=== PATIENT | female | born 1960 | race Caucasian/White ===

== ENCOUNTER → 2018-01-16 | Day surgery (SDC) | payer BC ==
--- NOTE | 2018-01-13 15:25 | Diagnostic Imaging Report ---
PROCEDURE: Frontal and lateral views of the chest. COMPARISON: None. INDICATIONS: PREOPERATIVE CHEST XRAY FOR FOOT SURGERY FINDINGS: Lines/tubes: None. Lungs: The lungs are well inflated and clear. There is no evidence of pneumonia or pulmonary edema. Pleura: There is no pleural effusion or pneumothorax. Heart and mediastinum: The heart and the mediastinum are normal. Bones: No acute bony abnormality. Hair jesus overlying the bilateral hemithorax. IMPRESSION: No acute cardiopulmonary disease. Dictated by: Jeremy Azul M.D. on 01/13/2018 at 15:25 Electronically approved by: Jeremy Azul M.D. on 01/13/2018 at 15:25
[~2018-01-16] MED LIST: BUPIVACAINE HCL 0.5% 10ML MPF VIAL INJ ONE; CEFAZOLIN SOD 2 GM/D5W 50ML 50 ML IV ONE; CITALOPRAM HBR20 MG PO; DEXAMETHASONE SOD PHOS INJ 4 MG/ML VIAL ONE; EPHEDRINE SULFATE INJ 50 MG/10 ML SYR ONE; FENTANYL CITRATE/PF 100MCG/2 ML INJ ONE; LEVOTHYROXINE100 MC1 PO; LIDOCAINE HCL 2% LOCAL INJ 5 ML SDV VIAL INJ ONE; LISINOPRIL10 MG PO; MIDAZOLAM HCL 2 MG/2 ML VIAL ONE; ONDANSETRON HCL INJ 2 MG/ML VIAL ONE; PROPOFOL IV EMULSION 10 MG/ML 20 ML VIAL ONE; SEVOFLURANE INHAL SOLN 250 ML PEN BTL ONE; SULFAMETHOXAZO1 EAC1 PO; TYLENOL # 31 EA PO
--- OUTSIDE RECORDS SUMMARY | 2018-01-16 06:05 | XMS REPORT ---
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 Allergies, Adverse Reactions, Alerts This patient has no known allergies or adverse reactions. Medications This patient has no known medications. Results Test Description Test Time Test Comments Text Results Atomic Results Result Comments CHEST 2 VIEWS [place] [id number] Patient Name: BRANDON LARSON MR #: [id number] : 1960 Age/Sex: 57/F Req # : [id number] Adm Physician: Ordered by: LOCO DYKES DPM Report #: [id number] Location: OR Room/Bed: Procedure: [id number] DX/CHEST 2 VIEWS Exam Date: 01/13/18 Exam Time: 1430 REPORT STATUS: Signed PROCEDURE: Frontal and lateral views of the chest. COMPARISON: None. INDICATIONS: PREOPERATIVE CHEST XRAY FOR FOOT SURGERY FINDINGS: Lines/tubes: None. Lungs: The lungs are well inflated and clear. There is no evidence of pneumonia or pulmonary edema. Pleura: There is no pleural effusion or pneumothorax. Heart and mediastinum: The heart and the mediastinum are normal. Bones: No acute bony abnormality. Hair jesus overlying the bilateral hemithorax. IMPRESSION: No acute cardiopulmonary disease. Dictated by: Rao Azul M.D. on 01/13/2018 at 15:25 Electronically approved by: Rao Azul M.D. on 01/13/2018 at 15:25 Dictated By: RAO AZUL MD [id number] Transcribed By: DAJA on 01/13/18 1525 COPY TO: LOCO DYKES DPM
--- NOTE | 2018-01-26 18:53 | Operative Report ---
DATE OF PROCEDURE: January 16, 2018 PREOPERATIVE DIAGNOSES 1. Cystic lesion, dorsal aspect of the right foot. 2. Tailor's bunion, right foot. POSTOPERATIVE DIAGNOSES 1. Cystic lesion, dorsal aspect of the right foot. 2. Tailor's bunion, right foot. TITLE OF OPERATION 1. Excision of ganglion cyst, right foot. 2. Tailor's bunionectomy, right foot. ANESTHESIA: General endotracheal. HEMOSTASIS: Right thigh tourniquet at 350 mmHg. PROCEDURE IN DETAIL: The patient was taken to the operating room in a mildly sedated state and placed upon the operating table in the supine position. Following induction of general anesthetic, the right lower extremity is elevated to 60 degrees to exsanguinate before inflating pneumatic thigh tourniquet to 350 mmHg for hemostasis. The right Lower extremity was then placed on the operating table prior to performing the following procedure: Procedure #1: Cystic lesion excision. Linear longitudinal incision was made overlying the dorsal cystic lesion. Incision was deepened via sharp and blunt dissection down to the level of dorsal capsular structures. The lesion was approximately 5 gm in circumference, excised in toto after circumferential dissection with an electrocautery to all superficial bleeders and the deep stalk. The area was irrigated and closed with 3-0 Vicryl and 4-0 nylon. Attention was then directed to the Tailor's bunion site and linear longitudinal incision was made. The bone itself was remodeled after capsular incision and irrigated with copious amounts of sterile saline solution. Deep closure with 3-0 Vicryl. Skin closure 4-0 nylon. The areas of surgery were all blocked with 0.5 Marcaine and Decadron LA. A TLS drain was used. Release of the pneumatic thigh tourniquet showed a normal hyperemic flush to all digits of the right foot. The patient left the operating room with vital signs stable and in apparent satisfactory condition, having tolerated both anesthetic and procedure very well. Job#: [id number] GH
== END | disposition home or self-care (01) ==
LOC: OR 06:02
PROVIDERS: ATTEND Podiatrist Foot Surgery
DX: M67.471 Ganglion, right ankle and foot (principal); M21.6X1 Other acquired deformities of right foot; I10 Essential (primary) hypertension; E03.9 Hypothyroidism, unspecified; F39 Unspecified mood [affective] disorder; F17.210 Nicotine dependence, cigarettes, uncomplicated; Z01.810 Encounter for preprocedural cardiovascular examination; Z01.818 Encounter for other preprocedural examination
CPT/HCPCS: 28090; 28110; 71046; 76001; 88304; 88305; 93005; J1100; J2001; J2250; J2405; 88302; 88311

== ENCOUNTER 2018-10-20 03:36 | Inpatient (IN) | payer BC ==
[~2018-10-20] VITALS: Ht 162.6 cm; Wt 74.4 kg
[~2018-10-20 03:36] MED LIST changes: -BUPIVACAINE HCL 0.5% 10ML MPF VIAL INJ ONE; -CEFAZOLIN SOD 2 GM/D5W 50ML 50 ML IV ONE; -DEXAMETHASONE SOD PHOS INJ 4 MG/ML VIAL ONE; -EPHEDRINE SULFATE INJ 50 MG/10 ML SYR ONE; -FENTANYL CITRATE/PF 100MCG/2 ML INJ ONE; -LIDOCAINE HCL 2% LOCAL INJ 5 ML SDV VIAL INJ ONE; -MIDAZOLAM HCL 2 MG/2 ML VIAL ONE; -ONDANSETRON HCL INJ 2 MG/ML VIAL ONE; -PROPOFOL IV EMULSION 10 MG/ML 20 ML VIAL ONE; -SEVOFLURANE INHAL SOLN 250 ML PEN BTL ONE
[2018-10-20] MEDS ORDERED: ONDANSETRON HCL INJ 2 MG/ML VIAL IV STA (04:07)
[2018-10-20] MEDS ORDERED: SODIUM CHLORIDE 0.9% 1000ML 1,000 ML IV STA (04:07)
[2018-10-20] MEDS ORDERED: HYDROMORPHONE 1MG/1ML INJ IV STA (04:07)
[2018-10-20] MEDS ORDERED: VANCOMYCIN 1GM/NS 250 ML 250 ML IV SCH ×2 (04:15)
[2018-10-20] MEDS ORDERED: HYDROMORPHONE 2MG/ML 2 MG/ML ML ONE (04:29)
[2018-10-20 04:40] LABS: BASOPHILS # (AUTO) 0.1 (0.0-0.1); BASOPHILS % 0.6 % (0.0-1.0); EOSINOPHILS # (AUTO) 0.2 (0.0-0.4); EOSINOPHILS % 1.4 % (0.0-6.0); HEMATOCRIT 39.7 % (34.2-44.1); HEMOGLOBIN 13.3 g/dL (12.0-16.0); LYMPHOCYTES # (AUTO) 3.1 (1.0-3.2); LYMPHOCYTES % 27.4 % (18.0-39.1); MEAN CORPUSCULAR HEMOGLOBIN 34.1 pg (28-32); MEAN CORPUSCULAR HGB CONC 33.5 g/dL (31-35); MEAN CORPUSCULAR VOLUME 101.8 fL (81-99); MONOCYTES % 9.1 % (4.4-11.3); NEUTROPHILS # (AUTO) 6.8 (2.1-6.9); NEUTROPHILS % 61.1 % (38.7-80.0); PLATELET COUNT 324 x10e3/uL (140-360); RED CELL DISTRIBUTION WIDTH 14.9 % (11.7-14.4)
[2018-10-20 04:50] LABS: INR 0.82; PROTHROMBIN TIME 12.1 seconds (11.9-14.5)
[2018-10-20 04:51] LABS: PARTIAL THROMBOPLASTIN TIME 41.8 seconds (23.8-35.5)
--- NOTE | 2018-10-20 04:58 | Diagnostic Imaging Report ---
FOOT RIGHT COMPLETE Comparison: None Clinical history: Infection, right fifth MTP joint Findings: Marked soft tissue swelling with several foci of gas overlying the right fifth MTP joint. No underlying bony destruction. Mild first MTP degenerative seen. Impression: Marked soft tissue swelling with several foci of gas overlying the right fifth MTP joint suggestive of underlying gangrenous infection. No radiographic evidence of osteomyelitis. If there is ongoing clinical concern, consider short term follow up repeat radiographs or MRI. Signed by: Dr Vidya Mcguire MD on 10/20/2018 4:54 AM
[2018-10-20 05:00] LABS: ALANINE AMINOTRANSFERASE 18 IU/L (0-55); ALBUMIN 3.8 g/dL (3.5-5.0); ALBUMIN/GLOBULIN RATIO 0.9 (0.8-2.0); ALKALINE PHOSPHATASE 78 IU/L (40-150); ANION GAP 14.2 mmol/L (8-16); BLOOD UREA NITROGEN 8 mg/dL (7-26); BUN/CREATININE RATIO 12 (6-25); CALCIUM 9.3 mg/dL (8.4-10.2); CARBON DIOXIDE 22 mmol/L (22-29); CHLORIDE 104 mmol/L (98-107); CREATININE, SERUM 0.68 mg/dL (0.57-1.11); EST GLOMERULAR FILTRATION RATE > 60 ML/MIN (60-); GLUCOSE 110 mg/dL (74-118); POTASSIUM 4.2 mmol/L (3.5-5.1); SODIUM 136 mmol/L (136-145)
[2018-10-20] MEDS: SODIUM CHLORIDE 0.9% 1000ML 1,000 ML IV SCH ×3 (05:00→23:21)
[2018-10-20] MEDS: PIPER-TAZ 3.375 GM 50 ML IV SCH ×4 (05:00→23:44)
[2018-10-20] MEDS ORDERED: HYDROMORPHONE 1MG/1ML INJ IV PRN (05:15)
[2018-10-20] MEDS ORDERED: ONDANSETRON HCL INJ 2 MG/ML VIAL IV PRN (05:15)
[2018-10-20] MEDS ORDERED: HYDROMORPHONE 2MG/ML 2 MG/ML ML IV ONE (05:30)
[2018-10-20] MEDS ORDERED: FAMOTIDINE 20 MG TAB PO SCH ×2 (07:30→16:30)
[2018-10-20] MEDS: FAMOTIDINE 20 MG TAB PO SCH ×2 (07:50→17:04)
[2018-10-20] MEDS: LEVOTHYROXINE SODIUM 100 MCG TAB PO SCH (08:02)
--- NOTE | 2018-10-20 08:45 | History and Physical ---
PRIMARY CARE PHYSICIAN: Dr. Joseph Antunez CHIEF COMPLAINT: Right foot infection. HISTORY OF PRESENT ILLNESS: This is a 57-year-old woman with a history of right buttock abscess, who has had an infection in the right foot in the past, now developing swelling, pain and redness in the right foot that started about 2-3 days ago. The last time on antibiotics was in October of 2018. The patient was admitted for further evaluation and management. She continues to smoke cigarettes, a half a pack of cigarettes per day. PAST MEDICAL HISTORY: Cigarette use, right buttock abscess, status post incision and drainage, hypertension, hypothyroidism, chronic hepatitis C, hidradenitis, anxiety disorder. PAST SURGICAL HISTORY: Foot surgery, incision and drainage of right buttock abscess. ALLERGIES: PER ELECTRONIC MEDICAL RECORD. FAMILY/SOCIAL HISTORY: Patient is . She has no children. No alcohol. She smokes half a pack of cigarettes per day. MEDICATIONS: Per electronic medical record. REVIEW OF SYSTEMS: Denies any fever, chills, sweats, nausea, vomiting, diarrhea, headache, vision changes, back pain, chest pain, or shortness of breath. PHYSICAL EXAMINATION VITAL SIGNS: Reviewed. GENERAL: A tired-appearing woman resting in bed. HEENT: Anicteric. CARDIOVASCULAR: Normal S1 and S2. LUNGS: Moderate breath sounds. ABDOMEN: Soft, nontender and nondistended. EXTREMITIES: She has right foot lateral border with pus draining out after drainage in the emergency room. She has a dressing in place. The site is erythematous, tender, edematous, and warm. SKIN: Dry. PSYCHIATRIC: Flat affect. NEUROLOGICAL: Alert and oriented times 3. Moving all extremities. LABS: Reviewed. MEDICATIONS: Reviewed. ASSESSMENT: This is a 57-year-old woman with: 1. Right foot abscess. 2. Cigarette use. 3. Anxiety disorder. 4. Hypertension. 5. Hypothyroidism. PLAN 1. Continue broad-spectrum antibiotics. 2. Podiatry consulted. 3. Follow up cultures. 4. Continue home medications. 5. Obtain sed rate. 6. Hemoglobin A1c is 4.6. 7. Counseled on cigarette cessation. Will start nicotine patch. 8. Will use Lovenox and Pepcid for prophylaxis. Job#: [id number] MS
[2018-10-20] MEDS: HYDROMORPHONE 2MG/ML 2 MG/ML ML IV PRN ×5 (09:21→23:50)
[2018-10-20] MEDS: NICOTINE 14 MG/EA PATCH TOP SCH (09:21)
[2018-10-20] MEDS: CITALOPRAM HYDROBROMIDE 20 MG TAB PO SCH (09:21)
[2018-10-20] MEDS: LISINOPRIL 10 MG TAB PO SCH (09:21)
[2018-10-20 10:22] VITALS: BP 123/94
[2018-10-20 10:55] VITALS: BP 123/94
[2018-10-20 12:04] VITALS: BP 125/87
[2018-10-20] MEDS ORDERED: PNEUMOCOCCAL VACCINE POLYVALENT 23 MCG/0.5 ML VIAL IM SCH (14:00)
[2018-10-20] MEDS ORDERED: INFLUENZA VIRUS VAC SPLIT INJ 0.5 ML SYR IM ONE (14:00)
--- NOTE | 2018-10-20 15:07 | Diagnostic Imaging Report ---
MRI of the right forefoot without contrast. History: Swelling and pain. Pain at the right fifth toe. Osteomyelitis. Prior incision and drainage. Technique: Multiplanar multisequence MRI of the foot without contrast. Comparison: Radiographs 10/20/2018 Findings: There is abnormal soft tissue edema and skin thickening with foci of air along the distal lateral foot at the level of the distal fifth metatarsal. There is no underlying cortical destruction or focal bone marrow edema to suggest osteomyelitis at this time. No acute fracture, dislocation or evidence of avascular process. There are scattered degenerative changes most pronounced at the first metatarsophalangeal joint. No ligamentous or tendon tear is seen. The visualized muscles are normal in size, signal intensity and morphology. The visualized neurovascular bundles are intact. Impression: Abnormal soft tissue edema and skin thickening with foci of air along the distal lateral foot at the level of the distal fifth metatarsal. This is consistent with cellulitis and abscess formation. There is no underlying cortical destruction or focal bone marrow edema to suggest osteomyelitis at this time. Signed by: Dr. Kristian Freeman M.D. on 10/20/2018 3:03 PM
--- NOTE | 2018-10-20 15:10 | Consultation ---
DATE OF CONSULTATION: October 20, 2018 CHIEF COMPLAINT AND HISTORY OF CHIEF COMPLAINT: Mrs. Simeon Rivers is a most pleasant, 57-year-old female with history of multiple infections, particularly the buttocks had an abscess of the right buttocks many years ago which was drained. She stated that she had also had an infection in her right foot and was on antibiotics back in October of last year. The patient is a smoker, smoking half a pack of cigarettes per day. The patient has responded to antibiotics in the past, and was told that she had MRSA in her buttocks abscess. She states that 2-3 days ago she noticed an increase in swelling in the right foot to a point of extreme pain. She came in last night through the emergency room. ER doctor drained the abscess and admitted her on IV antibiotics. PAST MEDICAL HISTORY: Includes cigarette use, abscessing hypertension, hypothyroidism, chronic hepatitis C and an anxiety disorder. PAST SURGICAL HISTORY: Includes right foot surgery and an incision and drainage of the right buttocks abscess. ALLERGIES: NO KNOWN DRUG ALLERGIES. FAMILY AND SOCIAL HISTORY: She is with no children. She does not drink alcohol. CURRENT MEDICATIONS: Well documented elsewhere within the chart. Please see electronic medical record. REVIEW OF SYSTEMS: Patient does complaint pain in the right lower extremity. She denies fever, chills, sweating, nausea or vomiting. She did state that she felt weak and sick to her stomach when she was admitted to the ER last night, but currently does not feel that way. She denies history of chest pain or shortness of breath. PHYSICAL EXAMINATION: LOWER EXTREMITIES: Vascular status: The patient has mildly palpable dorsalis pedis and nonpalpable posterior tibial pulses, both left and right feet, possibly deep to edema. Neurologic: She has no loss of protective sensation as evidenced by [place] monofilament testing. Dermatologically: There is an abscessed area on the right foot overlying the 5th metatarsophalangeal joint. There is a puncture wound on the dorsal lateral aspect through which significant amount hematogenous, sanguinous purulent exudate is currently draining. This area was expressed and an additional 10 mL, more or less, purulent red exudate was drained from the wound. Dressing was reapplied. She will need wet-to-dry dressings on that site. No other significant lesions were present. There is some mild scarring on the plantar aspect of that right foot, possibly from previous foreign body. The site is erythematous and warm to touch. Musculoskeletal: Shows the patient with rectus foot type with no other significant deformity. Radiographs which were reviewed do show an abscess with some air at the time of admission. This abscess is currently draining, but needs further revision in the OR. DIAGNOSES: Abscess cellulitis in the right foot in a patient with no diabetes but multiple medical issues. RECOMMENDATIONS: The wound is currently draining, has been cultured, and local wound care is being administered. She is currently on IV antibiotics. Dr. Fisher has been consulted for further evaluation and treatment and recommendation on antibiotics. Arterial Dopplers have been ordered to evaluate vascular status. Wound care is currently a saline wet-to-dry dressing to encourage continued drainage. MRI has been ordered to determine extent of bone involvement or possible osteomyelitis at this point. Incision and drainage of the right foot abscess has been scheduled in the OR for tomorrow noon. Diabetes workup is undergoing and hemoglobin A1c is 4.[address] Melton. The patient will currently remain minimally weightbearing and further course of treatment will be recommended after I&D tomorrow. Job#: [id number]
--- NOTE | 2018-10-20 16:42 | Consultation ---
DATE OF CONSULTATION: REASON FOR CONSULTATION: Infection in the foot, cellulitis, concern of osteomyelitis. HISTORY OF PRESENT ILLNESS: Qijgr[age]ujqkq-orys-old white female. History of several infections before, recurrent right buttock abscess, face abscess. She is coming with fever and chills for about 4 days ago. Does not have redness or swelling of her foot on the right. No specific trauma. She did not step on anything. The patient was just recently in the hospital with another abscess and she was started on an antibiotic and just finished it a few months ago according to her. The patient is coming back with the same fever, chills, and now infection in her foot. Patient is being admitted. Plan for her to go I and D tomorrow. Infectious disease is consulted for antibiotic. She is currently lying in bed comfortably. PAST MEDICAL HISTORY: Multiple abscesses, right buttock abscess, face abscess, status post I and D, chronic hepatitis C, anxiety disorder, hidradenitis, smoker. PAST SURGICAL HISTORY: Foot surgery. I and D of right buttock abscess. ALLERGIES: NKA. SOCIAL HISTORY: She smokes 1 pack a day. No drug abuse, alcohol abuse. FAMILY HISTORY: Diabetes mellitus and hypertension. REVIEW OF SYSTEMS HEENT: Negative. PULMONARY: Negative. CARDIAC: Negative. : Negative. SKIN: There is no rash. LABORATORY DATA: Wound cultures still pending. Her white count 11.2, hemoglobin of 13. Her sed rate of 30. Her sodium 136, potassium 4.2. Her liver enzyme within normal limits. Creatinine 0.68. She had an MRI of her foot which showed soft tissue swelling with air along the distal aspect of the foot to the level of the distal 5th metatarsal. No underlying bone infection. Patient was started on Zosyn and vancomycin. PHYSICAL EXAMINATION GENERAL: She is currently alert, oriented. Does not seem to be in acute distress. VITALS: Stable, currently afebrile. HEENT: She is not icteric. NECK: Supple. CHEST: Clear. HEART: S1, S2. No murmur. ABDOMEN: Soft. EXTREMITIES: The foot there is erythema. There is edema. IMPRESSION: Abscess of the foot in a patient who has history of smoking, history of multiple infections before, methicillin-resistant Staphylococcus aureus colonization. Agree with the choice of antibiotic. Surgical debridement in the morning. Will follow. Further recommendations to follow. Job#: [id number] TA
[2018-10-20 17:02] VITALS: BP 146/94
[2018-10-20] MEDS: ENOXAPARIN SOD INJ 40 MG/0.4 ML SYR SC SCH (17:04)
[2018-10-20] MEDS: VANCOMYCIN 1GM/NS 250 ML 250 ML IV SCH (18:15)
[2018-10-20 20:00] VITALS: BP 142/81
[2018-10-20 21:00] VITALS: BP 142/81
[2018-10-21] VITALS (9 sets, daily range): BP systolic 136–174; BP diastolic 73–95
[2018-10-21] MEDS: HYDROMORPHONE 2MG/ML 2 MG/ML ML IV PRN ×5 (04:25→22:00)
[2018-10-21] MEDS: SODIUM CHLORIDE 0.9% 1000ML 1,000 ML IV SCH (05:12)
[2018-10-21] MEDS: PIPER-TAZ 3.375 GM 50 ML IV SCH (05:24)
[2018-10-21] MEDS: VANCOMYCIN 1GM/NS 250 ML 250 ML IV SCH ×2 (06:45→18:39)
[2018-10-21] MEDS: FAMOTIDINE 20 MG TAB PO SCH ×2 (07:30→16:30)
[2018-10-21 08:20] LABS: CHOL/HDL RATIO 3.1 (3.0-3.6)
[2018-10-21] MEDS: CEFEPIME HCL 1 GM VIAL IV SCH (12:00)
[2018-10-21] MEDS ORDERED: BACITRACIN 50,000 UNIT VIAL ONE (12:43)
[2018-10-21] MEDS ORDERED: BUPIVACAINE HCL 0.5% INJ 30 ML VIAL INJ ONE (12:43)
[2018-10-21 13:45] LABS: BASOPHILS # (AUTO) 0.1 (0.0-0.1); BASOPHILS % 1.1 % (0.0-1.0); EOSINOPHILS # (AUTO) 0.2 (0.0-0.4); HEMATOCRIT 37.1 % (34.2-44.1); HEMOGLOBIN 12.2 g/dL (12.0-16.0); LYMPHOCYTES # (AUTO) 2.5 (1.0-3.2); LYMPHOCYTES % 38.1 % (18.0-39.1); MEAN CORPUSCULAR HEMOGLOBIN 34.6 pg (28-32); MEAN CORPUSCULAR HGB CONC 32.9 g/dL (31-35); MEAN CORPUSCULAR VOLUME 105.1 fL (81-99); MONOCYTES # (AUTO) 0.6 (0.2-0.8); MONOCYTES % 9.3 % (4.4-11.3); NEUTROPHILS # (AUTO) 3.2 (2.1-6.9); NEUTROPHILS % 48.2 % (38.7-80.0); PLATELET COUNT 288 x10e3/uL (140-360); RED BLOOD COUNT 3.53 x10e6/uL (3.6-5.1)
[2018-10-21] MEDS ORDERED: FENTANYL CITRATE/PF 100MCG/2 ML INJ ONE ×2 (13:48→19:21)
[2018-10-21 13:58] LABS: ALANINE AMINOTRANSFERASE 14 IU/L (0-55); ALBUMIN 3.1 g/dL (3.5-5.0); ALBUMIN/GLOBULIN RATIO 0.9 (0.8-2.0); ALKALINE PHOSPHATASE 62 IU/L (40-150); BLOOD UREA NITROGEN 6 mg/dL (7-26); BUN/CREATININE RATIO 10 (6-25); CALCIUM 8.8 mg/dL (8.4-10.2); CARBON DIOXIDE 23 mmol/L (22-29); CHLORIDE 105 mmol/L (98-107); EST GLOMERULAR FILTRATION RATE > 60 ML/MIN (60-); GLUCOSE 95 mg/dL (74-118); SODIUM 138 mmol/L (136-145)
[2018-10-21] MEDS: LISINOPRIL 10 MG TAB PO SCH (14:20)
[2018-10-21] MEDS: CITALOPRAM HYDROBROMIDE 20 MG TAB PO SCH (14:20)
[2018-10-21] MEDS ORDERED: ONDANSETRON HCL INJ 2 MG/ML VIAL ONE (14:35)
[2018-10-21] MEDS ORDERED: DEXAMETHASONE SOD PHOS INJ 4 MG/ML VIAL ONE (14:35)
[2018-10-21] MEDS ORDERED: PROPOFOL IV EMULSION 10 MG/ML 20 ML VIAL ONE (14:35)
[2018-10-21] MEDS ORDERED: LIDOCAINE HCL 2% LOCAL INJ 5 ML SDV VIAL INJ ONE (14:35)
[2018-10-21] MEDS ORDERED: SEVOFLURANE INHAL SOLN 250 ML PEN BTL ONE (14:35)
--- NOTE | 2018-10-21 14:54 | Operative Report ---
DATE OF PROCEDURE: PREOPERATIVE DIAGNOSIS: Abscess cellulitis of the right foot. POSTOPERATIVE DIAGNOSIS: Abscess cellulitis of the right foot. TITLE OF OPERATION: Incision and drainage with deep wound debridement of the right foot. PROCEDURE IN DETAIL: The patient was taken to the operating room in a mildly sedated state and placed upon the operating table in supine position. Following induction of general anesthesia the right foot was prepped and draped utilizing Betadine prep, the right foot was placed upon the operating table prior to performing the following procedure. The diagnosis was abscess cellulitis of the right foot, and an incision and drainage was performed. A plantar lateral incision was placed through the superficial and deep tissues of the right foot. These were then debrided circumferentially around the base of the abscess, which was actually quite large. It measured 3 cm x 3 cm x 2 cm deep. The wound itself had a granular muscular base with capsule of the 5th metatarsophalangeal joint exposed. The wound was again debrided full thickness through skin and subcutaneous tissue including infected and necrotic muscle on the plantar lateral aspect of the right foot. That wound base was then irrigated with copious amounts of bacitracin solution utilizing a Simpulse system. Prior to irrigation, deep wound cultures and sensitivities were obtained. The area was packed open with iodoform gauze, including the still yet mildly undermining areas particularly plantarly. The appropriate mildly compressive dressing was applied, and it was noted that adequate capillary refill was noted to the 5th digit of the right foot despite the depth of the plantar lateral debridement. The area showed significant but not profuse bleeding of the surrounding healthy tissues once the necrotic tissue was removed. With application of the appropriate mildly compressive dressings applied and intact, the patient was transported to the PACU and will be readmitted to the floor. IV antibiotics will be continued while bacteria is further identified for discharge to oral or IV antibiotics as recommended by Dr. iFsher. The deep wound will be managed with local wound care in house and ultimately likely transitioned to a Wound VAC. Job#: [id number] EV JUHI
[2018-10-21] MEDS: NICOTINE 14 MG/EA PATCH TOP SCH (15:00)
[2018-10-21] MEDS: ENOXAPARIN SOD INJ 40 MG/0.4 ML SYR SC SCH (17:05)
[2018-10-21] MEDS ORDERED: MIDAZOLAM HCL 2 MG/2 ML VIAL ONE (19:21)
[2018-10-22] VITALS (7 sets, daily range): BP systolic 140–157; BP diastolic 70–91
[2018-10-22] MEDS: SODIUM CHLORIDE 0.9% 1000ML 1,000 ML IV SCH ×2 (01:33→03:07)
[2018-10-22] MEDS: HYDROMORPHONE 2MG/ML 2 MG/ML ML IV PRN ×7 (01:35→23:07)
[2018-10-22] MEDS: LEVOTHYROXINE SODIUM 100 MCG TAB PO SCH (05:06)
[2018-10-22] MEDS: VANCOMYCIN 1GM/NS 250 ML 250 ML IV SCH ×2 (06:00→18:25)
[2018-10-22 07:30] LABS: BASOPHILS % 0.4 % (0.0-1.0); EOSINOPHILS # (AUTO) 0.1 (0.0-0.4); EOSINOPHILS % 0.6 % (0.0-6.0); HEMATOCRIT 34.2 % (34.2-44.1); HEMOGLOBIN 11.4 g/dL (12.0-16.0); LYMPHOCYTES # (AUTO) 2.5 (1.0-3.2); MEAN CORPUSCULAR HEMOGLOBIN 34.3 pg (28-32); MEAN CORPUSCULAR HGB CONC 33.3 g/dL (31-35); MONOCYTES # (AUTO) 1.1 (0.2-0.8); MONOCYTES % 11.5 % (4.4-11.3); NEUTROPHILS # (AUTO) 5.7 (2.1-6.9); NEUTROPHILS % 60.2 % (38.7-80.0); PLATELET COUNT 279 x10e3/uL (140-360); RED BLOOD COUNT 3.32 x10e6/uL (3.6-5.1); RED CELL DISTRIBUTION WIDTH 14.4 % (11.7-14.4)
[2018-10-22 07:42] LABS: ANION GAP 13.8 mmol/L (8-16); BLOOD UREA NITROGEN 10 mg/dL (7-26); BUN/CREATININE RATIO 19 (6-25); CALCIUM 9.1 mg/dL (8.4-10.2); CARBON DIOXIDE 24 mmol/L (22-29); CHLORIDE 102 mmol/L (98-107); CREATININE, SERUM 0.53 mg/dL (0.57-1.11); EST GLOMERULAR FILTRATION RATE > 60 ML/MIN (60-); GLUCOSE 113 mg/dL (74-118); POTASSIUM 3.8 mmol/L (3.5-5.1); SODIUM 136 mmol/L (136-145)
[2018-10-22] MEDS: FAMOTIDINE 20 MG TAB PO SCH ×2 (07:50→16:30)
[2018-10-22] MEDS: CITALOPRAM HYDROBROMIDE 20 MG TAB PO SCH (09:40)
[2018-10-22] MEDS: LISINOPRIL 10 MG TAB PO SCH (09:40)
[2018-10-22] MEDS: NICOTINE 14 MG/EA PATCH TOP SCH (09:41)
[2018-10-22] MEDS: CEFEPIME HCL 1 GM VIAL IV SCH ×3 (12:16→23:08)
[2018-10-22] MEDS: ENOXAPARIN SOD INJ 40 MG/0.4 ML SYR SC SCH (17:16)
--- NOTE | 2018-10-22 20:02 | Progress Note ---
DATE: SUBJECTIVE: The patient is seen today postoperatively with no new complaints. Her right foot is dressed sterilely with some minor serous drainage on the gauze. The wound dressing was completely removed. Packing was left intact. I would like to start sterile saline wet-to-dry and removal and replacement of the packing tomorrow. For today, I will just rewrap a saline wet-to-dry over the intact 1/4-inch iodoform packing. Patient understands she needs continued IV antibiotics due to the severity of the infection, the size of the wound, and we still yet do not have a culture ID of organism. She is likely to remain in through the weekend and will be sent home on the appropriate antibiotics early next week. Job#: [id number] CHRISTINA
[2018-10-23] VITALS (8 sets, daily range): BP systolic 139–180; BP diastolic 72–92
[2018-10-23] MEDS: HYDROMORPHONE 2MG/ML 2 MG/ML ML IV PRN ×6 (03:22→22:37)
[2018-10-23] MEDS: VANCOMYCIN 1GM/NS 250 ML 250 ML IV SCH ×2 (05:07→18:03)
[2018-10-23] MEDS: LEVOTHYROXINE SODIUM 100 MCG TAB PO SCH (05:07)
[2018-10-23] MEDS: FAMOTIDINE 20 MG TAB PO SCH ×2 (07:46→16:40)
[2018-10-23] MEDS: CITALOPRAM HYDROBROMIDE 20 MG TAB PO SCH (09:14)
[2018-10-23] MEDS: LISINOPRIL 20 MG TAB PO SCH (09:14)
[2018-10-23] MEDS: NICOTINE 14 MG/EA PATCH TOP SCH (09:14)
[2018-10-23] MEDS: CEFEPIME HCL 1 GM VIAL IV SCH (12:02)
[2018-10-23] MEDS: ENOXAPARIN SOD INJ 40 MG/0.4 ML SYR SC SCH (17:17)
--- NOTE | 2018-10-23 18:02 | Progress Note ---
DATE: ROOM #284 Patient is seen today postoperatively. Sterile, redress; all packing is removed. The wound base is clear and clean at this point. There still remains a significant amount of inflammation and erythema surrounding the wound. Full-thickness debridement has been completed. There is exposed joint capsule in order to stimulate granular tissue and increase the speed of granulation to cover the capsule and thus preventing spread of infection, I have recommended a wound VAC. She needs to stay on IV antibiotics through the weekend here in the hospital and consider discharge on Friday pending Dr. Fisher's recommendations for antibiotics. Job#: [id number] RTY
[2018-10-24] VITALS (8 sets, daily range): BP systolic 135–160; BP diastolic 64–88
[2018-10-24] MEDS ORDERED: SODIUM CHLORIDE 0.9% 50ML 50 ML ONE ×2 (00:26→11:16)
[2018-10-24] MEDS: CEFEPIME HCL 1 GM VIAL IV SCH ×3 (01:10→23:59)
[2018-10-24] MEDS: HYDROMORPHONE 2MG/ML 2 MG/ML ML IV PRN ×8 (01:38→23:45)
[2018-10-24] MEDS: VANCOMYCIN 1GM/NS 250 ML 250 ML IV SCH ×2 (05:30→17:38)
[2018-10-24] MEDS: LEVOTHYROXINE SODIUM 100 MCG TAB PO SCH (05:30)
[2018-10-24] MEDS: CITALOPRAM HYDROBROMIDE 20 MG TAB PO SCH (08:01)
[2018-10-24] MEDS: FAMOTIDINE 20 MG TAB PO SCH ×2 (08:01→16:35)
[2018-10-24] MEDS: LISINOPRIL 20 MG TAB PO SCH (08:02)
[2018-10-24] MEDS: NICOTINE 14 MG/EA PATCH TOP SCH (09:00)
[2018-10-24] MEDS: ENOXAPARIN SOD INJ 40 MG/0.4 ML SYR SC SCH (16:35)
[2018-10-25] VITALS (7 sets, daily range): BP systolic 122–149; BP diastolic 59–79
[2018-10-25] MEDS: HYDROMORPHONE 2MG/ML 2 MG/ML ML IV PRN ×7 (02:50→21:21)
[2018-10-25] MEDS: VANCOMYCIN 1GM/NS 250 ML 250 ML IV SCH ×2 (05:48→16:54)
[2018-10-25] MEDS: LEVOTHYROXINE SODIUM 100 MCG TAB PO SCH (05:48)
[2018-10-25] MEDS: FAMOTIDINE 20 MG TAB PO SCH ×2 (07:56→16:54)
[2018-10-25] MEDS: CITALOPRAM HYDROBROMIDE 20 MG TAB PO SCH (07:56)
[2018-10-25] MEDS: LISINOPRIL 20 MG TAB PO SCH (07:56)
[2018-10-25] MEDS: NICOTINE 14 MG/EA PATCH TOP SCH (07:56)
[2018-10-25] MEDS: CEFEPIME HCL 1 GM VIAL IV SCH (12:00)
[2018-10-25] MEDS ORDERED: SODIUM CHLORIDE 0.9% 50ML 50 ML ONE (12:00)
--- NOTE | 2018-10-25 13:50 | Progress Note ---
DATE: October 25, 2018 SUBJECTIVE: Patient was seen at bedside today, no acute distress. Dressing clean, dry, and intact to the right foot. VAC was in place. She denies any nausea, fever, chills, vomiting, or any constitutional symptoms. ASSESSMENT: Status post debridement with application of wound VAC to the right foot. PLAN: Continue with Dr. Peterson's wound care recommendations. IV antibiotics per infectious disease. Podiatry will continue to follow. Thank you again for including us in the care of this patient. Job#: [id number] CANDIDO
[2018-10-25] MEDS: ENOXAPARIN SOD INJ 40 MG/0.4 ML SYR SC SCH (16:54)
[2018-10-26] VITALS: BP 136/73
[2018-10-26] MEDS: HYDROMORPHONE 2MG/ML 2 MG/ML ML IV PRN ×6 (00:15→16:00)
[2018-10-26] MEDS: CEFEPIME HCL 1 GM VIAL IV SCH ×2 (00:22→12:24)
[2018-10-26 04:00] VITALS: BP 142/81
[2018-10-26] MEDS: LEVOTHYROXINE SODIUM 100 MCG TAB PO SCH (06:00)
[2018-10-26] MEDS: VANCOMYCIN 1GM/NS 250 ML 250 ML IV SCH (06:45)
[2018-10-26 07:05] VITALS: BP 133/70
[2018-10-26 07:39] VITALS: BP 133/70
[2018-10-26] MEDS ORDERED: MINOCYCLINE HCL50 MG PO (07:42)
[2018-10-26] MEDS ORDERED: NICODERM CQ1 EAC1 TOP (07:42)
[2018-10-26] MEDS ORDERED: CIPRO500 MG PO (07:42)
[2018-10-26] MEDS: FAMOTIDINE 20 MG TAB PO SCH (08:10)
[2018-10-26] MEDS: CITALOPRAM HYDROBROMIDE 20 MG TAB PO SCH (09:17)
[2018-10-26] MEDS: LISINOPRIL 20 MG TAB PO SCH (09:17)
[2018-10-26] MEDS: NICOTINE 14 MG/EA PATCH TOP SCH (09:17)
[2018-10-26 11:50] VITALS: BP 127/75
--- NOTE | 2018-10-26 14:27 | Progress Note ---
DATE: Patient is evaluated today. Wound VAC is operational. She has no new complaints. She continues to have pain in her right foot. Physical evaluation shows palpable pedal pulses. Neurologically, she has no loss of protective sensation. Dermatologically, the wound itself is covered with a wound VAC which is functional at this point. She is having difficulty stepping on it due to the lateral placement of the pump apparatus. We discussed possibly next time, they apply the wound VAC appliance to the top of her foot so it will seal better and allow her to walk. Patient understands this and she is actually ready for discharge. Dr. Fisher has authorized oral antibiotic regimen. We discussed with her switching to [place] 10 per 325 one p.o. q.4 h. p.r.n. pain as her discharge pain medicine. Patient understands this and with regard to her pump, we are still awaiting outpatient wound VAC approval. As soon as this is achieved, she may discharge home to home health on wound VAC and oral antibiotics, returning to see me in the office within 1 week post discharge. Job#: [id number] [place]
[2018-10-26 15:49] VITALS: BP 152/90
[2018-10-26] MEDS ORDERED: DOXYCYCLINE HY100 MG PO (16:17)
[2018-10-26] MEDS ORDERED: CEFEPIME 1GM/NS 0.9% 50 ML 50 ML IV SCH (21:00)
== END 2018-10-26 17:13 | disposition home or self-care (01) | DRG 581 ==
LOC: ER 03:36 → ERHOLD 06:32 → MED/SURG3 08:27
PROVIDERS: ADMIT Internal Medicine; ATTEND Internal Medicine
PROC: 0KBV0ZZ Excision of Right Foot Muscle, Open Approach (ICD-10-PCS; principal; 2018-10-21 12:45)
DX: L02.611 Cutaneous abscess of right foot (principal); F17.210 Nicotine dependence, cigarettes, uncomplicated; Z22.322 Carrier or suspected carrier of Methicillin resistant Staphylococcus aureus; E03.9 Hypothyroidism, unspecified; B18.2 Chronic viral hepatitis C; R53.81 Other malaise; I10 Essential (primary) hypertension
CPT/HCPCS: 36415; 80048; 80053; 80061; 80202; 83036; 85025; 85610; 85651; 85730; 87070; 87071; 87075; 87205; 90732; 93005; 93925; 96361; 99284; J0692; J1100; J1650; J2001; J2250; J2405; J2543; J3370; J7030

== ENCOUNTER 2021-02-13 14:53 | Emergency (ER) | payer BC ==
[~2021-02-13] VITALS: Ht 162.6 cm; Wt 74.4 kg
[~2021-02-13 14:53] MED LIST changes: +CIPRO500 MG PO; +DOXYCYCLINE HY100 MG PO; +MINOCYCLINE HCL50 MG PO; +NICODERM CQ1 EAC1 TOP
[2021-02-13] MEDS: MORPHINE SULFATE INJ 4 MG/ML INJ 1ML IV STA (15:30)
[2021-02-13] MEDS: KETOROLAC TROMETHAMINE 30 MG/ML VIAL IV STA (15:32)
[2021-02-13] MEDS: DEXAMETHASONE SOD PHOS 10 MG/1 ML VIAL IV ONE (15:32)
[2021-02-13 15:38] LABS: BASOPHILS # (AUTO) 0.1 (0.0-0.1); EOSINOPHILS # (AUTO) 0.3 (0.0-0.4); EOSINOPHILS % 3.6 % (0.0-6.0); HEMATOCRIT 40.2 % (34.2-44.1); HEMOGLOBIN 13.5 g/dL (12.0-16.0); LYMPHOCYTES # (AUTO) 2.8 (1.0-3.2); LYMPHOCYTES % 36.8 % (18.0-39.1); MEAN CORPUSCULAR HEMOGLOBIN 30.6 pg (28-32); MEAN CORPUSCULAR HGB CONC 33.6 g/dL (31-35); MEAN CORPUSCULAR VOLUME 91.2 fL (81-99); MONOCYTES # (AUTO) 0.5 (0.2-0.8); MONOCYTES % 6.9 % (4.4-11.3); NEUTROPHILS # (AUTO) 3.9 (2.1-6.9); NEUTROPHILS % 51.4 % (38.7-80.0); PLATELET COUNT 307 x10e3/uL (140-360); RED BLOOD COUNT 4.41 x10e6/uL (3.6-5.1); RED CELL DISTRIBUTION WIDTH 12.9 % (11.7-14.4)
[2021-02-13 15:57] LABS: ALANINE AMINOTRANSFERASE 44 IU/L (0-55); ALBUMIN 3.6 g/dL (3.5-5.0); ALBUMIN/GLOBULIN RATIO 0.8 (0.8-2.0); ALKALINE PHOSPHATASE 170 IU/L (40-150); ANION GAP 15.3 mmol/L (8-16); BLOOD UREA NITROGEN 8 mg/dL (7-26); BUN/CREATININE RATIO 12 (6-25); CALCIUM 8.5 mg/dL (8.4-10.2); CARBON DIOXIDE 22 mmol/L (22-29); CHLORIDE 100 mmol/L (98-107); CREATININE, SERUM 0.68 mg/dL (0.57-1.11); EST GLOMERULAR FILTRATION RATE > 60 ML/MIN (60-); GLUCOSE 95 mg/dL (74-118); POTASSIUM 4.3 mmol/L (3.5-5.1); SODIUM 133 mmol/L (136-145)
[2021-02-13] MEDS ORDERED: HYDROCODON-ACE1 EA12 PO (16:48)
== END 2021-02-13 18:16 | disposition home or self-care (01) ==
LOC: ER 14:57
DX: M25.572 Pain in left ankle and joints of left foot (principal); M25.571 Pain in right ankle and joints of right foot; M25.562 Pain in left knee; M25.561 Pain in right knee; M25.552 Pain in left hip; M25.551 Pain in right hip; M54.2 Cervicalgia; I10 Essential (primary) hypertension; E03.9 Hypothyroidism, unspecified; F41.9 Anxiety disorder, unspecified
CPT/HCPCS: 36415; 73110; 80053; 85025; 99284; J1100; J1885; J2270

== ENCOUNTER 2022-10-04 08:44 | Emergency (ER) | payer BC ==
[~2022-10-04] VITALS: Ht 160 cm; Wt 74.4 kg
[~2022-10-04 08:44] MED LIST changes: +HYDROCODON-ACE1 EA12 PO
[2022-10-04] MEDS ORDERED: KETOROLAC TROMETHAMINE 30 MG/ML VIAL IM STA (08:57)
[2022-10-04] MEDS ORDERED: DEXAMETHASONE SOD PHOS 10 MG/1 ML VIAL IM ONE (09:00)
[2022-10-04] MEDS ORDERED: MUCINEX DM ER1 EACH PO (10:00)
== END 2022-10-04 10:50 | disposition home or self-care (01) ==
LOC: ER 08:49
DX: R05.9 Cough, unspecified (principal); J06.9 Acute upper respiratory infection, unspecified; J02.9 Acute pharyngitis, unspecified; Z20.822 Contact with and (suspected) exposure to COVID-19
CPT/HCPCS: 71045; 99284; J1100; J1885; U0002

== ENCOUNTER 2024-06-27 06:57 | Emergency (ER) | payer BC, OTHER ==
[~2024-06-27] VITALS: Ht 160 cm; Wt 74.4 kg
[~2024-06-27 06:57] MED LIST changes: +MUCINEX DM ER1 EACH PO
[2024-06-27 07:07] VITALS: PULSE 72; RESP 16; TEMP 98.2
[2024-06-27] MEDS: KETOROLAC TROMETHAMINE 60 MG/2 ML VIAL IM ONE (07:30)
[2024-06-27] MEDS: HYDRALAZINE HCL 25 MG TAB PO ONE (07:31)
[2024-06-27] MEDS ORDERED: PREDNISONE20 MG PO (08:24)
[2024-06-27] MEDS ORDERED: CELEBREX100 MG PO (08:27)
[2024-06-27] MEDS: PREDNISONE 20 MG TAB PO ONE (08:41)
[2024-06-27 08:52] VITALS: BP 170/100; PULSE 70; RESP 17; O2SAT 100
== END 2024-06-27 08:54 | disposition home or self-care (01) ==
LOC: ER 07:06
DX: M25.571 Pain in right ankle and joints of right foot (principal); I10 Essential (primary) hypertension; E03.9 Hypothyroidism, unspecified; M32.9 Systemic lupus erythematosus, unspecified; M06.9 Rheumatoid arthritis, unspecified; F41.9 Anxiety disorder, unspecified
CPT/HCPCS: 99283; J1885; J7512

== ENCOUNTER 2024-07-17 17:01 | Emergency (ER) | payer BC, OTHER ==
[~2024-07-17] VITALS: Ht 160 cm; Wt 74.4 kg
[~2024-07-17 17:01] MED LIST changes: +CELEBREX100 MG PO; +PREDNISONE20 MG PO
[2024-07-17 17:05] VITALS: PULSE 69; RESP 18; TEMP 97.7; O2SAT 100
[2024-07-17] MEDS: TRAMADOL HCL 50 MG TAB PO ONE (17:20)
[2024-07-17] MEDS ORDERED: TRAMADOL HCL 50 MG TAB ONE (17:23)
[2024-07-17] MEDS: TETANUS/DIPHTHERIA TOX ADULT 0.5 ML SYR IM ONE (17:24)
[2024-07-17] MEDS ORDERED: TETANUS/DIPHTHERIA TOX ADULT 0.5 ML SYR ONE (17:27)
[2024-07-17 17:28] VITALS: BP 169/86
== END 2024-07-17 17:38 | disposition home or self-care (01) ==
LOC: ER 17:07
DX: S51.811A Laceration without foreign body of right forearm, initial encounter (principal); I10 Essential (primary) hypertension; E03.9 Hypothyroidism, unspecified; F41.9 Anxiety disorder, unspecified
CPT/HCPCS: 90471; 90714; 99282